=== PATIENT | female | born 1960 | race Caucasian/White ===

== ENCOUNTER 2016-12-28 15:30 | Emergency (ER) | payer MEDICAID ==
[2016-12-28] MEDS ORDERED: ONDANSETRON 4 MG/2 ML VIAL IVP STA (15:50)
[2016-12-28] MEDS ORDERED: MORPHINE SULFATE 4 MG/ML SYRINGE IV STA (15:50)
[2016-12-28] MEDS ORDERED: PANTOPRAZOLE 40 MG/10 ML VIAL IVP STA (15:50)
[2016-12-28] MEDS ORDERED: SODIUM CHLORIDE 0.9% 1,000 ML IV STA ×2 (15:50)
--- NOTE | 2016-12-28 16:23 | ED ---
General Adult HPI - General Chief complaint: Nausea/Vomiting/Diarrhea Stated complaint: Vomiting Time Seen by Provider: 12/28/16 15:40 Source: patient, RN notes reviewed, old records reviewed Mode of arrival: ambulatory Limitations: no limitations - History of Present Illness Initial comments: This is a 56-year-old female today presenting ER for evaluation of abdominal pain. Nausea vomiting. Severe right upper quadrant and epigastric dull pain with nausea and vomiting. Patient has no history of similar issues. She has had a history of a hysterectomy years ago. She have a bowel movement today. Again no fevers. No diarrhea. The patient started vomiting this morning has continued. Unable to tolerate oral intake. - Related Data Home Medications Medication Instructions Recorded Confirmed Hydrochlorothiazide [Hydrodiuril] 25 mg PO DAILY 12/28/16 12/28/16 Levothyroxine Sodium [Synthroid] 25 mcg PO DAILY 12/28/16 12/28/16 Levothyroxine Sodium [Synthroid] 200 mcg PO DAILY 12/28/16 12/28/16 Allergies Allergy/AdvReac Type Severity Reaction Status Date / Time No Known Allergies Allergy Verified 12/28/16 15:46 Review of Systems ROS Statement: Those systems with pertinent positive or pertinent negative responses have been documented in the HPI. ROS Other: All systems not noted in ROS Statement are negative. Past Medical History Past Medical History: Thyroid Disorder Additional Past Medical History / Comment(s): arthritis History of Any Multi-Drug Resistant Organisms: None Reported Past Surgical History: Section, Hysterectomy Additional Past Surgical History / Comment(s): thyroidectomy Past Psychological History: No Psychological Hx Reported Smoking Status: Former smoker Past Alcohol Use History: Rare Past Drug Use History: None Reported General Exam Limitations: no limitations General appearance: alert, in no apparent distress Head exam: Present: atraumatic, normocephalic, normal inspection Eye exam: Present: normal appearance, PERRL, EOMI. Absent: scleral icterus, conjunctival injection, periorbital swelling ENT exam: Present: normal exam, mucous membranes moist Neck exam: Present: normal inspection. Absent: tenderness, meningismus, lymphadenopathy Respiratory exam: Present: normal lung sounds bilaterally. Absent: respiratory distress, wheezes, rales, rhonchi, stridor Cardiovascular Exam: Present: regular rate, normal rhythm, normal heart sounds. Absent: systolic murmur, diastolic murmur, rubs, gallop, clicks GI/Abdominal exam: Present: soft, normal bowel sounds. Absent: distended, tenderness, guarding, rebound, rigid Extremities exam: Present: normal inspection, full ROM, normal capillary refill. Absent: tenderness, pedal edema, joint swelling, calf tenderness Back exam: Present: normal inspection Neurological exam: Present: alert, oriented X3, CN II-XII intact Psychiatric exam: Present: normal affect, normal mood Skin exam: Present: warm, dry, intact, normal color. Absent: rash Course Vital Signs 12/28/16 12/28/16 15:35 17:37 Temperature 98.3 F Pulse Rate 104 H 100 Respiratory 18 18 Rate Blood Pressure 136/88 142/72 O2 Sat by Pulse 98 98 Oximetry - Reevaluation(s) Reevaluation #1: 12/28/16 17:56 At this time patient symptoms are improved, symptomatically 12/28/16 17:56 Feeling better and able to tolerate oral intake EKG Findings - EKG Comments: EKG Findings:: EKG shows normal sinus rhythm rate of 66, VT 178, QRS 74, QTC 417 Medical Decision Making - Medical Decision Making 56 female here with nonspecific abdominal pain, ultrasound gallbladder CT of and pelvis is negative for acute disease. Patient's vomiting isn't controlled at this time, we'll discharge home with gastritis, discharged patient with antiemetics and okay for discharge - Lab Data Result diagrams: 12/28/16 16:18 12/28/16 16:18 Lab Results 12/28/16 12/28/16 12/28/16 Range/Units 16:18 16:18 16:18 WBC 10.8 H (3.8-10.6) k/uL RBC 5.38 (3.80-5.40) m/uL Hgb 16.0 (11.4-16.0) gm/dL Hct 47.0 H (34.0-46.0) % MCV 87.4 (80.0-100.0) fL MCH 29.7 (25.0-35.0) pg MCHC 34.0 (31.0-37.0) g/dL RDW 13.2 (11.5-15.5) % Plt Count 286 (150-450) k/uL Neutrophils % 89 % Lymphocytes % 7 % Monocytes % 2 % Eosinophils % 1 % Basophils % 0 % Neutrophils # 9.6 H (1.3-7.7) k/uL Lymphocytes # 0.8 L (1.0-4.8) k/uL Monocytes # 0.2 (0-1.0) k/uL Eosinophils # 0.2 (0-0.7) k/uL Basophils # 0.0 (0-0.2) k/uL Sodium 141 (137-145) mmol/L Potassium 4.2 (3.5-5.1) mmol/L Chloride 100 (98-107) mmol/L Carbon Dioxide 26 (22-30) mmol/L Anion Gap 15 mmol/L BUN 24 H (7-17) mg/dL Creatinine 0.68 (0.52-1.04) mg/dL Est GFR (MDRD) Af Amer >60 (>60 ml/min/1.73 sqM) Est GFR (MDRD) Non-Af >60 (>60 ml/min/1.73 sqM) Glucose 144 H (74-99) mg/dL Plasma Lactic Acid Magan (0.7-2.0) mmol/L Calcium 9.2 (8.4-10.2) mg/dL Total Bilirubin 1.1 (0.2-1.3) mg/dL AST 31 (14-36) U/L ALT 34 (9-52) U/L Alkaline Phosphatase 94 (38-126) U/L Total Protein 8.3 H (6.3-8.2) g/dL Albumin 4.6 (3.5-5.0) g/dL Amylase 46 (30-110) U/L Lipase 49 (23-300) U/L Urine Color Yellow Urine Appearance Clear (Clear) Urine pH 5.5 (5.0-8.0) Ur Specific Voss 1.021 (1.001-1.035) Urine Protein 1+ H (Negative) Urine Glucose (UA) Negative (Negative) Urine Ketones Negative (Negative) Urine Blood Negative (Negative) Urine Nitrite Negative (Negative) Urine Bilirubin Negative (Negative) Urine Urobilinogen <2.0 (<2.0) mg/dL Ur Leukocyte Esterase Trace H (Negative) Urine RBC 1 (0-5) /hpf Urine WBC 2 (0-5) /hpf Ur Squamous Epith Cells 5 H (0-4) /hpf Amorphous Sediment Rare H (None) /hpf Urine Bacteria Rare H (None) /hpf Urine Mucus Rare H (None) /hpf 12/28/16 Range/Units 16:20 WBC (3.8-10.6) k/uL RBC (3.80-5.40) m/uL Hgb (11.4-16.0) gm/dL Hct (34.0-46.0) % MCV (80.0-100.0) fL MCH (25.0-35.0) pg MCHC (31.0-37.0) g/dL RDW (11.5-15.5) % Plt Count (150-450) k/uL Neutrophils % % Lymphocytes % % Monocytes % % Eosinophils % % Basophils % % Neutrophils # (1.3-7.7) k/uL Lymphocytes # (1.0-4.8) k/uL Monocytes # (0-1.0) k/uL Eosinophils # (0-0.7) k/uL Basophils # (0-0.2) k/uL Sodium (137-145) mmol/L Potassium (3.5-5.1) mmol/L Chloride (98-107) mmol/L Carbon Dioxide (22-30) mmol/L Anion Gap mmol/L BUN (7-17) mg/dL Creatinine (0.52-1.04) mg/dL Est GFR (MDRD) Af Amer (>60 ml/min/1.73 sqM) Est GFR (MDRD) Non-Af (>60 ml/min/1.73 sqM) Glucose (74-99) mg/dL Plasma Lactic Acid Magan 1.7 (0.7-2.0) mmol/L Calcium (8.4-10.2) mg/dL Total Bilirubin (0.2-1.3) mg/dL AST (14-36) U/L ALT (9-52) U/L Alkaline Phosphatase (38-126) U/L Total Protein (6.3-8.2) g/dL Albumin (3.5-5.0) g/dL Amylase (30-110) U/L Lipase (23-300) U/L Urine Color Urine Appearance (Clear) Urine pH (5.0-8.0) Ur Specific Voss (1.001-1.035) Urine Protein (Negative) Urine Glucose (UA) (Negative) Urine Ketones (Negative) Urine Blood (Negative) Urine Nitrite (Negative) Urine Bilirubin (Negative) Urine Urobilinogen (<2.0) mg/dL Ur Leukocyte Esterase (Negative) Urine RBC (0-5) /hpf Urine WBC (0-5) /hpf Ur Squamous Epith Cells (0-4) /hpf Amorphous Sediment (None) /hpf Urine Bacteria (None) /hpf Urine Mucus (None) /hpf - Radiology Data Radiology results: report reviewed (CT had a pelvis ultrasound gallbladder is negative for acute disease), image reviewed Disposition Clinical Impression: Dehydration, Gastroenteritis, Abdominal pain Disposition: HOME SELF-CARE Condition: Good Instructions: Acute Nausea and Vomiting (ED) Referrals: Lyndsey Treviño MD [Primary Care Provider] - 1-2 days
[2016-12-28 16:34] LABS: Basophils % (A) 0 %; CH 30.4; CHCM 34.9; Eosinophils # (A) 0.2 k/uL (0-0.7); Eosinophils % (A) 1 %; Luc # (Auto) 0.09; Luc % (Auto) 1; Lymphocytes # (A) 0.8 k/uL (1.0-4.8); Lymphocytes % (A) 7 %; MCH 29.7 pg (25.0-35.0); MCV 87.4 fL (80.0-100.0); Mean Platelet Volume 7.5; Monocytes # (A) 0.2 k/uL (0-1.0); Monocytes % (A) 2 %; Neutrophils # (A) 9.6 k/uL (1.3-7.7); Neutrophils % (A) 89 %; RBC 5.38 m/uL (3.80-5.40); RDW 13.2 % (11.5-15.5); WBC 10.8 k/uL (3.8-10.6); WBC (Perox) 10.98
[2016-12-28 16:43] LABS: Amorphous Sediment,Urine Rare /hpf; Appearance,Urine Clear (Clear); Bacteria,Urine Rare /hpf; Bilirubin,Urine Negative (Negative); Glucose,Urine (UA) Negative (Negative); Ketones,Urine Negative (Negative); Leukocyte Esterase,Urine Trace (Negative); Mucus,Urine Rare /hpf; Nitrite,Urine Negative (Negative); PH, Urine 5.5 (5.0-8.0); Particle Count 5787; Protein,Urine 1+ (Negative); RBC,Urine 1 /hpf (0-5); Specific Gravity,Urine 1.021 (1.001-1.035); Squamous Epithelial Cell,Urine 5 /hpf (0-4); UA Billing (MACRO vs. MICRO) MICRO; Urobilinogen,Urine <2.0 mg/dL (<2.0); WBC,Urine 2 /hpf (0-5)
[2016-12-28 16:45] LABS: ALT 34 U/L (9-52); AST 31 U/L (14-36); Alkaline Phosphatase 94 U/L (38-126); Amylase 46 U/L (30-110); Anion Gap 15 mmol/L; Blood Urea Nitrogen 24 mg/dL (7-17); Calcium 9.2 mg/dL (8.4-10.2); Carbon Dioxide 26 mmol/L (22-30); Chloride 100 mmol/L (98-107); Glucose 144 mg/dL (74-99); Non-African American GFR(MDRD) >60 (>60 ml/min/1.73 sqM); Potassium 4.2 mmol/L (3.5-5.1); Sodium 141 mmol/L (137-145); Total Bilirubin 1.1 mg/dL (0.2-1.3); Total Protein 8.3 g/dL (6.3-8.2)
--- NOTE | 2016-12-28 16:55 | US ---
EXAMINATION TYPE: US gallbladder DATE OF EXAM: 12/28/2016 4:43 PM COMPARISON: CT in PACS CLINICAL HISTORY: Pain. Nausea, Vomiting Bile, ABD pain EXAM MEASUREMENTS: Liver Length: 21.5 cm Gallbladder Wall: 0.2 cm CBD: 0.4 cm Right Kidney: 10.1 x 4.0 x 4.3 cm TECHNOLOGIST IMPRESSION: Pancreas: wnl, tail obscured by overlying bowel gas Liver: Enlarged, heterogeneous Gallbladder: wnl Evidence for sonographic Khalil's sign: No CBD: wnl Right Kidney: wnl There is fatty infiltration of the liver. The gallbladder wall measures 2 mm. IMPRESSION: Hepatomegaly and fatty infiltration of the liver.
[2016-12-28] MEDS ORDERED: RX INFO: IV CONTRAST WAS GIVEN 1 EACH MISC MISCELLANE PRN (17:06)
--- NOTE | 2016-12-28 17:44 | CT ---
EXAMINATION TYPE: CT abdomen pelvis w con DATE OF EXAM: 12/28/2016 5:36 PM COMPARISON: 08/27/2013 HISTORY: Patient complains of nausea, vomit ting, and RUQ to epigastric pain. CT DLP: 1596 mGycm Automated exposure control for dose reduction was used. TECHNIQUE: Helical acquisition of images was performed from the lung bases through the pelvis. CONTRAST: Performed without Oral Contrast and with IV Contrast, patient injected with 100 mL of Omnipaque 300. FINDINGS: Lung bases are clear. There is no pleural effusion. Heart size is normal. Liver shows no focal defect. Spleen and pancreas appear normal. The gallbladder appears normal. There is no adrenal mass. Kidneys show satisfactory contrast opacification. There is no hydronephrosi s. Appendix appears normal. There is no ascites. I see no intestinal wall thickening. There are no di lated loops. There are numerous sigmoid diverticula. Bladder distends smoothly. There is no sign of a pelvic mass. I see no bony destructive process. There is slight 5% depression of the superior endpla te of T11 vertebra. This is probably old injury. IMPRESSION: SEVERE SIGMOID DIVERTICULOSIS WITHOUT EVIDENCE OF DIVERTICULITIS. NO SIGN OF ACUTE ABDOMEN AND PELVIS . NO ADVERSE CHANGE COMPARED TO OLD EXAM.
[2016-12-28 18:06] VITALS: BP 117/56; PULSE 88; RESP 16; TEMP 98.4
== END 2016-12-28 18:06 | disposition home or self-care (01) ==
LOC: EC 15:30
DX: E86.0 Dehydration (principal); K52.9 Noninfective gastroenteritis and colitis, unspecified; E07.9 Disorder of thyroid, unspecified; Z87.891 Personal history of nicotine dependence; Z79.899 Other long term (current) drug therapy
CPT/HCPCS: 99284; 96374; 96375 ×2; 96361 ×2; 36415; 80053; 82150; 83605; 83690; 85025; 81001; 87086; 76705; 74177; J2270; J2405; Q9967; C9113

== ENCOUNTER → 2017-07-22 | Outpatient (CLI) | payer MEDICAID ==
--- NOTE | 2017-07-22 14:28 | BD ---
EXAMINATION TYPE: MG DEXA axial skeleton. DATE OF EXAM: 07/22/2017 COMPARISON: NONE CLINICAL HISTORY: Postmenopausal screening. Height: 63 Weight: 193.1 FRAX RISK QUESTIONS: Alcohol (3 or more units per day): no Family History (Parent hip fracture): no Glucocorticoids (More than 3mos): no (Ex: prednisone, prednisolone, methylprednisolone, dexamethasone, and hydrocortisone). History of Fracture in Adulthood: no Secondary Osteoporosis: 1. Type 1 Diabetes: no 2. Hyperthyroidism: no 3. Menopause before 45: yes 4. Malnutrition: no 5. Chronic liver disease: no Rheumatoid Arthritis: no Current Tobacco Use: no RISK FACTORS HISTORY OF: Hip Fracture (Right/Left): no Spine Fracture: no History of Wrist Fracture: no Surgery to Spine/Hip(right/left)/Wrist (right/left): no Family History of Osteoporosis: no Active: yes Diet low in dairy products/other sources of calcium: no Postmenopausal woman: March 1988 Lost more than 2 inches in height since high school: no Frequent falls: no Adrenal Insufficiency: no MEDICATIONS: blood pressure med Thyroid Medications: synthroid How Lon years Additional History: EXAM MEASUREMENTS: Bone mineral densitometry was performed using the [employer] System. Bone mineral density as measured about the Lumbar spine is: ----- L1-L4(G/cm2): 1.254 T Score Values are as follows: ----- L2: 0.0 ----- L3: 0.7 ----- L4: 0.9 ----- L1-L4: 0.6 Bone mineral density has: decreased -5.0 % since study of: 07.09.2010 Bone mineral density about the R hip (g/cm2): 0.975 Bone mineral density about the L hip (g/cm2): 0.921 T Score values are as follows: -----R Neck: -0.5 -----L Neck: -0.8 -----R Total: 0.6 -----L Total: 0.7 Bone mineral density has: decreased -0.2 % since study of: 07.09.2010 IMPRESSION: Normal (Values between +1 and -1 indicate normal bone mass). Consider repeating this study in 5 year s or sooner if there is some new clinical indication. NOTE: T-SCORE=SD OF THE YOUNG ADULT MEAN.
--- NOTE | 2017-07-25 10:34 | MM ---
Reason for exam: screening (asymptomatic). Last mammogram was performed 1 year and 1 month ago. History: Family history of breast cancer in sister at age 62 and breast cancer in mother at age 82. Physical Findings: A clinical breast exam by your physician is recommended on an annual basis and results should be correlated with mammographic findings. MG 3D Screening Mammo W/Cad Bilateral CC and MLO view(s) were taken. Prior study comparison: June 30, 2016, bilateral MG 3d screening mammo w/cad. April 10, 2015, bilateral MG screening mammo w CAD. The breast tissue is heterogeneously dense. This may lower the sensitivity of mammography. No suspicious abnormality. No significant changes when compared with prior studies. ASSESSMENT: Negative, BI-RAD 1 RECOMMENDATION: Routine screening mammogram of both breasts in 1 year.
== END | disposition home or self-care (01) ==
LOC: RADMAMWWP 06:46
PROVIDERS: ATTEND Family Medicine
DX: Z12.31 Encounter for screening mammogram for malignant neoplasm of breast (principal); Z78.0 Asymptomatic menopausal state
CPT/HCPCS: 77080; 77063; G0202

== ENCOUNTER → 2018-08-08 | Outpatient (CLI) | payer MEDICAID ==
--- NOTE | 2018-08-10 11:22 | MM ---
Reason for exam: screening (asymptomatic). Last mammogram was performed 1 year and 1 month ago. History: Family history of breast cancer in sister at age 62 and breast cancer in mother at age 82. MG 3D Screening Mammo W/Cad Bilateral CC and MLO view(s) were taken. Prior study comparison: July 22, 2017, bilateral MG 3d screening mammo w/cad. June 30, 2016, bilateral MG 3d screening mammo w/cad. There are scattered fibroglandular densities. No significant changes when compared with prior studies. ASSESSMENT: Negative, BI-RAD 1 RECOMMENDATION: Routine screening mammogram of both breasts in 1 year.
== END | disposition home or self-care (01) ==
LOC: RADMAMWWP 11:59
PROVIDERS: ATTEND Family Medicine
DX: Z12.31 Encounter for screening mammogram for malignant neoplasm of breast (principal)
CPT/HCPCS: 77063; 77067

== ENCOUNTER → 2019-11-12 | Outpatient (CLI) | payer BC ==
--- NOTE | 2019-11-14 10:50 | MM ---
Reason for exam: screening (asymptomatic). Last mammogram was performed 1 year and 3 months ago. History: Family history of breast cancer in sister at age 62 and breast cancer in mother at age 82. Physical Findings: A clinical breast exam by your physician is recommended on an annual basis and results should be correlated with mammographic findings. MG Screening Mammo w CAD Bilateral CC and MLO view(s) were taken. Prior study comparison: August 08, 2018, bilateral MG 3d screening mammo w/cad. July 22, 2017, bilateral MG 3d screening mammo w/cad. The breast tissue is heterogeneously dense. This may lower the sensitivity of mammography. No significant changes when compared with prior studies. ASSESSMENT: Negative, BI-RAD 1 RECOMMENDATION: Routine screening mammogram of both breasts in 1 year.
== END | disposition home or self-care (01) ==
LOC: RADMAMWWP 12:37
PROVIDERS: ATTEND Family Medicine
DX: Z12.31 Encounter for screening mammogram for malignant neoplasm of breast (principal)
CPT/HCPCS: 77067

== ENCOUNTER → 2021-02-12 | Outpatient (CLI) | payer BC ==
--- NOTE | 2021-02-16 09:39 | MM ---
Reason for exam: screening (asymptomatic). Last mammogram was performed 1 year and 3 months ago. History: Patient is postmenopausal. Family history of breast cancer in sister at age 62 and breast cancer in mother at age 82. Physical Findings: A clinical breast exam by your physician is recommended on an annual basis and results should be correlated with mammographic findings. MG 3D Screening Mammo W/Cad Bilateral CC and MLO view(s) were taken. Prior study comparison: November 12, 2019, bilateral MG screening mammo w CAD. August 08, 2018, bilateral MG 3d screening mammo w/cad. The breast tissue is heterogeneously dense. This may lower the sensitivity of mammography. No significant changes when compared with prior studies. ASSESSMENT: Benign, BI-RAD 2 RECOMMENDATION: Routine screening mammogram of both breasts in 1 year.
== END | disposition home or self-care (01) ==
LOC: RADMAMWWP 13:01
PROVIDERS: ATTEND Family Medicine
DX: Z12.31 Encounter for screening mammogram for malignant neoplasm of breast (principal); Z80.3 Family history of malignant neoplasm of breast; Z78.0 Asymptomatic menopausal state
CPT/HCPCS: 77063; 77067

== ENCOUNTER → 2021-02-25 | Outpatient (CLI) | payer BC ==
[~2021-02-25] MED LIST: REGADENOSON 0.4 MG/5 ML SYRINGE IV PRN
--- NOTE | 2021-02-25 12:28 | NM ---
EXAMINATION TYPE: NM stress lexiscan cardiolite DATE OF EXAM: 02/25/2021 COMPARISON: NONE HISTORY: 60-year-old female R06.02, shortness of breath and dizziness. TECHNIQUE: After the intravenous administration of 9.4 mCi Tc 99m Sestamibi - Cardiolite resting SPE CT images acquired 45 minutes post injection. The patient received 0.4mg Lexiscan, 23.3 mCi Tc 99m Sestamibi - Stress images obtained [address] injection FINDINGS: Review of stress and rest SPECT images demonstrates no distinct perfusion abnormality. Gated analysi s shows normal wall motion with an estimated left ventricular ejection fraction of 62 %. Polar maps s uggest some reversibility along the basal anterolateral wall. Suspect this to be artifactual given pr ominent GI activity accentuating the inferior wall. TID is calculated at 0.84, within normal limits. IMPRESSION: Polar maps suggest a small area of reversibility along the basal inferolateral wall. Suspect this to be artifactual. Further clinical correlation recommended. Otherwise, no other suspicious reversibilit y is seen. Estimated LVEF of 62%.
--- NOTE | 2021-02-25 12:39 | EST ---
EXERCISE STRESS AGE: 60 SEX: Female HT: 5'3" WT: 185 lbs. PROTOCOL: Lexiscan Cardiolite STAGE: N/A DURATION OF EXERCISE: N/A HEART RATE REST: 64 BLOOD PRESSURE REST: 127/66 MAXIMUM HEART RATE ACHIEVED: 92 MAXIMUM BLOOD PRESSURE: 142/64 85% MPHR: 136 100% MPHR: 160 METS: N/A INDICATIONS: Vertigo CLINICAL INFORMATION: Baseline EKG revealed normal sinus rhythm without significant ST-T changes. With Lexiscan administration, the heart rate changed from 64 to 92 beats per minute. Blood pressure changed from 127/66 to 142/64. Patient did not have significant symptoms. EKG was unremarkable. By EKG criteria, this is unremarkable Lexiscan stress test. The nuclear scan results which are more pertinent will be reported by the radiologist. MMODL / IJN: [id number] /
== END | disposition home or self-care (01) ==
LOC: RADNMMAIN 07:49
PROVIDERS: ATTEND Family Medicine
DX: R06.02 Shortness of breath (principal); R42 Dizziness and giddiness
CPT/HCPCS: 93017; 78452; A9500; J2785

== ENCOUNTER → 2022-06-18 | Outpatient (CLI) | payer BC ==
--- NOTE | 2022-06-20 08:06 | BD ---
EXAMINATION TYPE: Axial Bone Density DATE OF EXAM: 06/18/2022 COMPARISON: 2017 bone scan report CLINICAL HISTORY: 62 years year old Female. ICD-10 CODE: Z78.0 Asymptomatic menopausal state Height: 5 FT 2 IN Weight: 182 FRAX RISK QUESTIONS: Alcohol (3 or more units per day): NO Family History (Parent hip fracture): NO Glucocorticoids (More than 3mos): NO (Ex: prednisone, prednisolone, methylprednisolone, dexamethasone, and hydrocortisone). History of Fracture in Adulthood: NO Secondary Osteoporosis: 1. Type 1 Diabetes: NO 2. Hyperthyroidism: REMOVED 3. Menopause before 45: YES 4. Malnutrition: NO 5. Chronic liver disease: NO Rheumatoid Arthritis: NO Current Tobacco Use: NO RISK FACTORS HISTORY OF: When: Surgery to Spine/Hip(right/left)/Wrist (right/left): NO Family History of Osteoporosis: NO Active: NO Diet low in dairy products/other sources of calcium: NO Postmenopausal woman: YES Take estrogen and/or progesterone medications: NO Lost more than 2 inches in height since high school: NO Frequent falls: NO Poor Health: GOOD Hyperparathyroidism: NO Adrenal Insufficiency: NO MEDICATIONS: Thyroid Medications: YES Which medication: LEVOTHYROXINE How Lon YEARS Additional Medications: METFORMIN, BLOOD PRESSURE MEDS,LEVOTHYROXINE Additional History: EXAM MEASUREMENTS: Bone mineral densitometry was performed using the [employer] System. Bone mineral density as measured about the Lumbar spine is: ----- L1-L4(G/cm2): 1.271 T Score Values are as follows: ----- L1: 0.8 ----- L2: 0.5 ----- L3: 0.6 ----- L4: 1.0 ----- L1-L4: 0.8 Bone mineral density has: INCREASED 1.3 % since study of: 2017 Bone mineral density about the R hip (g/cm2): 1.017 Bone mineral density about the L hip (g/cm2): 0.959 T Score values are as follows: -----R Neck: -0.1 -----L Neck: -0.6 -----R Total: 0.5 -----L Total: 0.7 Bone mineral density has: DECREASED -0.2 % since study of: 2017 FRAX%s: The graph provided illustrates a 6.6 % chance for a major osteoporotic fx and a 0.3 % chance for the hips probability for fx in 10 years time. IMPRESSION: Normal (Values between +1 and -1 indicate normal bone mass). Consider repeating this study in 5 year s or sooner if there is some new clinical indication. NOTE: T-SCORE=SD OF THE YOUNG ADULT MEAN.
--- NOTE | 2022-06-25 18:13 | MM ---
Reason for Exam: Screening (asymptomatic). Last mammogram was performed 1 year(s) and 4 month(s) ago. Patient History: Menarche at age 12. First Full-Term at age 18. Right ovary removed at age 28. Hysterectomy at age 28. Postmenopausal. Sister had breast cancer, age 62. Mother had breast cancer, age 82. Risk Values: Rhea 5 year model risk: 7.2%. NCI Lifetime model risk: 28.9%. Prior Study Comparison: 08/08/2018 Bilateral Screening Mammogram, [facility]. 11/12/2019 Bilateral Screening Mammogram, [facility]. 02/12/2021 Bilateral Screening Mammogram, [facility]. Tissue Density: There are scattered fibroglandular densities. Findings: Analyzed By CAD. There is no suspicious group of microcalcifications or new suspicious mass in either breast. Overall Assessment: Negative, BI-RAD 1 Management: Screening Mammogram of both breasts in 1 year. A clinical breast exam by your physician is recommended on an annual basis and results should be correlated with mammographic findings. Electronically signed and approved by: Frederick Reeves DO
== END | disposition home or self-care (01) ==
LOC: RADMAMWWP 15:54
PROVIDERS: ATTEND Family Medicine
DX: Z12.31 Encounter for screening mammogram for malignant neoplasm of breast (principal); Z78.0 Asymptomatic menopausal state; Z80.3 Family history of malignant neoplasm of breast
CPT/HCPCS: 77063; 77067; 77080

== ENCOUNTER → 2023-02-16 | Outpatient (CLI) | payer BC ==
[2023-02-16 13:45] LABS: African American GFR (CKD) >90 (>60 ml/min/1.73 sqM); Blood Urea Nitrogen 17 mg/dL (7-17); Non-African American GFR(CKD) >90 (>60 ml/min/1.73 sqM)
--- NOTE | 2023-02-17 09:37 | CT ---
EXAMINATION TYPE: CT abdomen pelvis w con DATE OF EXAM: 02/16/2023 COMPARISON: 12/28/2016 HISTORY: 62-year-old female K57.20, possible fistula. Stool seeping from Vaginal cavity. With rectal contrast TECHNIQUE: Contiguous axial scanning of the abdomen and pelvis following administration of 100 ml Iso nalini 300 IV contrast. Delayed images through the kidneys and coronal/sagittal reconstructions perform ed. Rectal contrast was administered. CT DLP: 1705 mGycm Automated exposure control for dose reduction was used. FINDINGS: Heart normal size without pericardial effusion. Lung bases clear without pleural effusion. No focal liver lesion or biliary ductal dilatation. Portal venous system is patent. Gallbladder, adre nal glands, left kidney, spleen, and pancreas within normal limits. Extrarenal pelvis redemonstrated right kidney. No dilated small bowel, free fluid, free air. No mesenteric or retroperitoneal lymphadenopathy. Normal appendix. Moderate stool burden. Sigmoid diverticulosis. Moderate fold thickening mid to dista l sigmoid colon with adjacent inflammatory edema and fat stranding. Suspect two subtle fistulous communications extending from the inferior margin of the inflamed colon to the level of the vaginal cuff, refer to coronal images 59 through 62 and sagittal images 44 and 45 . Small amount of air is noted high in the vagina with some dependent debris. Just adjacent, interposed between the anterior aspect of the vaginal cuff and the posterior dome of t he bladder, there is a platelike fluid collection measuring 3.8 cm AP by 4.7 cm wide by 6 cm thick. Mild circumferential bladder wall thickening. Neither ovary well seen. Otherwise, no abnormal fluid c ollection in the pelvis. Bones: Degenerative disc disease L5-S1. IMPRESSION: 1. FINDINGS OF SUBACUTE DIVERTICULITIS OF THE SIGMOID COLON. MODERATE ASSOCIATED INFLAMMATION. 2. COMPLICATION WITH FISTULA FORMATION FROM THE INFERIOR MARGIN OF THE INFLAMED SIGMOID COLON TO THE VAGINAL CUFF. 2 TINY FISTULA TRACTS MAY BE PRESENT (CORONAL IMAGES 59 THROUGH 62 AND SAGITTAL IMAGES 44 AND 45). 3. IN ADDITION, JUST ADJACENT, INTERPOSED BETWEEN THE ANTERIOR ASPECT OF THE VAGINAL CUFF AND THE POS TERIOR DOME OF THE BLADDER, THERE IS A PLATELIKE FLUID COLLECTION MEASURING 3.8 X 4.7 X 0.6 CM. POSSI BLE PLATELIKE ABSCESS ALONG THE SEROSA OF THE BLADDER. 4. MILD CIRCUMFERENTIAL BLADDER WALL THICKENING MAY BE REACTIVE OR COULD REFLECT CYSTITIS. CLINICALLY CORRELATE.
== END | disposition home or self-care (01) ==
LOC: RADCTMAIN 13:06
PROVIDERS: ATTEND Surgery
DX: K57.20 Diverticulitis of large intestine with perforation and abscess without bleeding (principal); K63.2 Fistula of intestine; N32.89 Other specified disorders of bladder
CPT/HCPCS: 82565; 84520; 74177; 36415; Q9967

== ENCOUNTER 2023-05-10 18:33 | Observation (INO) | payer BC ==
[2023-05-10] MEDS ORDERED: SODIUM CHLORIDE 0.9% 1,000 ML IV STA ×2 (20:10→21:40)
[2023-05-10] MEDS ORDERED: ONDANSETRON 4 MG/2 ML VIAL IVP STA (20:26)
[2023-05-10] MEDS ORDERED: PANTOPRAZOLE 40 MG/10 ML VIAL IVP STA (20:26)
[2023-05-10] MEDS ORDERED: FAMOTIDINE 20 MG/2 ML VIAL IV STA (20:27)
[2023-05-10 20:34] LABS: Basophils % (A) 0 %; Eosinophils # (A) 0.2 k/uL (0-0.7); Eosinophils % (A) 1 %; HCT 44.1 % (34.0-46.0); HGB 15.3 gm/dL (11.4-16.0); Lymphocytes # (A) 2.4 k/uL (1.0-4.8); Lymphocytes % (A) 19 %; MCH 30.3 pg (25.0-35.0); MCHC 34.8 g/dL (31.0-37.0); MCV 87.1 fL (80.0-100.0); Mean Platelet Volume 8.9; Monocytes # (A) 0.7 k/uL (0-1.0); Monocytes % (A) 5 %; Neutrophils # (A) 9.5 k/uL (1.3-7.7); Neutrophils % (A) 74 %; Platelet Count 268 k/uL (150-450); RBC 5.06 m/uL (3.80-5.40); RDW 13.6 % (11.5-15.5); WBC 12.9 k/uL (3.8-10.6)
[2023-05-10 20:45] LABS: ALT 21 U/L (4-34); AST 27 U/L (14-36); African American GFR (CKD) 51 (>60 ml/min/1.73 sqM); Albumin 4.6 g/dL (3.5-5.0); Alkaline Phosphatase 108 U/L (38-126); Anion Gap 15 mmol/L; Blood Urea Nitrogen 28 mg/dL (7-17); Carbon Dioxide 21 mmol/L (22-30); Chloride 98 mmol/L (98-107); Glucose 79 mg/dL (74-99); Lipase 435 U/L (23-300); Magnesium 1.6 mg/dL (1.6-2.3); Non-African American GFR(CKD) 44 (>60 ml/min/1.73 sqM); Sodium 134 mmol/L (137-145); Total Bilirubin 0.6 mg/dL (0.2-1.3); Total Protein 8.4 g/dL (6.3-8.2)
--- NOTE | 2023-05-10 21:50 | XR ---
EXAMINATION TYPE: XR chest 2V DATE OF EXAM: 05/10/2023 9:29 PM COMPARISON: 03/13/2014 TECHNIQUE: XR chest 2V Frontal and lateral views of the chest. CLINICAL INDICATION:Female, 63 years old with history of weakness; FINDINGS: Lungs/Pleura: There is no evidence of pleural effusion, focal consolidation, or pneumothorax. Pulmonary vascularity: Unremarkable. Heart/mediastinum: Cardiomediastinal silhouette is unremarkable. Musculoskeletal: No acute osseous pathology. IMPRESSION: No acute cardiopulmonary disease/process.
[2023-05-10 21:54] LABS: INR 0.9 (<1.2); Partial Thromboplastin Time 24.2 sec (22.0-30.0); Prothrombin Time 10.1 sec (9.0-12.0)
--- NOTE | 2023-05-10 22:00 | ED ---
General Adult HPI - General Chief complaint: Weakness Stated complaint: Dehydration Time Seen by Provider: 05/10/23 20:09 Source: patient Mode of arrival: wheelchair Limitations: no limitations - History of Present Illness Initial comments: Patient is a 63-year-old female who presents to the emergency department for dehydration. Patient had an ostomy placed about a month ago states since the procedure she has had poor appetite. Patient admits a little water intake. She feels weak and dehydrated. She has had very little output from her ostomy toda y. She denies fever, chills, abdominal pain. She does have nausea no vomiting. No blood in the stool. Patient also reports intermittent chest pain today. The chest pain is intermittent lasting 3-4 minutes. It is sharp in nature, no radiation. It improved with samm anthony. No exacerbating factors. She has history of diabetes. No history of OR or CAD. No numbness or tingling. No shortness of breath. - Related Data Home Medications Medication Instructions Recorded Confirmed Levothyroxine Sodium [Synthroid] 200 mcg PO DAILY 12/28/16 05/10/23 hydroCHLOROthiazide [Hydrodiuril] 25 mg PO DAILY 12/28/16 05/10/23 Aspirin EC [Ecotrin Low Dose] 81 mg PO DAILY 05/10/23 05/10/23 Atorvastatin [Lipitor] 20 mg PO HS 05/10/23 05/10/23 Citalopram Hydrobromide [CeleXA] 10 mg PO DAILY 05/10/23 05/10/23 Glimepiride [Amaryl] 1 mg PO DAILY 05/10/23 05/10/23 Multivit-Min/Iron/Folic/Lutein 1 tab PO DAILY 05/10/23 05/10/23 [Centrum Silver Women Tablet] Mv-Mn/C/Glutamin/Lysin/Wqsl244 1 tablet PO BID 05/10/23 05/10/23 [Airborne Gummies] metFORMIN HCL [Glucophage] 1,000 mg PO BID 05/10/23 05/10/23 Allergies Allergy/AdvReac Type Severity Reaction Status Date / Time No Known Allergies Allergy Verified 05/10/23 22:19 Review of Systems ROS Statement: Those systems with pertinent positive or pertinent negative responses have been documented in the HPI. ROS Other: All systems not noted in ROS Statement are negative. Past Medical History Past Medical History: Thyroid Disorder Additional Past Medical History / Comment(s): arthritis, bowel fistula History of Any Multi-Drug Resistant Organisms: None Reported Past Surgical History: Section, Hysterectomy Additional Past Surgical History / Comment(s): thyroidectomy, illeostomy. Past Psychological History: No Psychological Hx Reported Smoking Status: Former smoker Past Alcohol Use History: Rare Past Drug Use History: None Reported General Exam Limitations: no limitations General appearance: alert Eye exam: Present: normal appearance, PERRL, EOMI. Absent: scleral icterus, conjunctival injection, periorbital swelling ENT exam: Present: mucous membranes dry Respiratory exam: Present: normal lung sounds bilaterally. Absent: respiratory distress, wheezes, rales, rhonchi, stridor Cardiovascular Exam: Present: regular rate, normal rhythm, normal heart sounds. Absent: systolic murmur, diastolic murmur, rubs, gallop, clicks GI/Abdominal exam: Present: soft, normal bowel sounds. Absent: distended, tenderness, guarding, rebound, rigid Neurological exam: Present: alert Psychiatric exam: Present: normal affect, normal mood Skin exam: Present: warm, dry, intact, normal color. Absent: rash Course Vital Signs 05/10/23 05/10/23 05/10/23 19:40 20:57 22:48 Temperature 98.3 F Pulse Rate 123 H 101 H 80 Respiratory 18 18 20 Rate Blood Pressure 91/64 98/78 110/16 O2 Sat by Pulse 97 95 98 Oximetry Medical Decision Making - Medical Decision Making Was pt. sent in by a medical professional or institution (, PA, [employer], urgent care, hospital, or usp...) When possible be specific @ -No Did you speak to anyone other than the patient for history (EMS, parent, family, police, friend...)? What history was obtained from this source @ -No Did you review nursing and triage notes (agree or disagree)? Why? @ -I reviewed and agree with nursing and triage notes Were old charts reviewed (outside hosp., previous admission, EMS record, old EKG, old radiological studies, urgent care reports/EKG's, usp records)? Report findings @ -No old charts were reviewed Differential Diagnosis (chest pain, altered mental status, abdominal pain women, abdominal pain men, vaginal bleeding, weakness, fever, dyspnea, syncope, headache, dizziness, GI bleed, back pain, seizure, CVA, palpatations, mental health)? @ -Dehydration, acute kidney injury, pancreatitis. This list is not meant to be all-inclusive EKG interpreted by me (3pts min.). @ -As above X-rays interpreted by me (1pt min.). @ -None done CT interpreted by me (1pt min.). @ -None done U/S interpreted by me (1pt. min.). @ -None done What testing was considered but not performed or refused? (CT, X-rays, U/S, labs)? Why? @ -None What meds were considered but not given or refused? Why? @ -None Did you discuss the management of the patient with other professionals (professionals i.e. , PA, [employer], lab, RT, psych nurse, social media assistant, belt worker, teacher, global chief creative officer, case management associate)? Give summary @ -No Was smoking cessation discussed for >3mins.? @ -No Was critical care preformed (if so, how long)? @ -No Were there social determinants of health that impacted care today? How? (Homelessness, low income, unemployed, alcoholism, drug addiction, transportation, low edu. Level, literacy, decrease access to med. care, residential, rehab)? @ -No Was there de-escalation of care discussed even if they declined (Discuss DNR or withdrawal of care, Hospice)? DNR status @ -No What co-morbidities impacted this encounter? (DM, HTN, Smoking, COPD, CAD, Cancer, CVA, ARF, Chemo, Hep., AIDS, mental health diagnosis, sleep apnea, morbid obesity)? @ -None Was patient admitted / discharged? Hospital course, mention meds given and route, prescriptions, significant lab abnormalities, going to OR and other pertinent info. @ -Patient presenting for dehydration. She appears dry. She is tachycardic at 123 and blood pressures on the softer side at 91/64. Labs obtained. There is acute kidney injury, creatinine at 1.30, double from baseline, BUN 28. Lactic is bumped at 2.5. There is mild elevation of lipase at 435. EKG shows no evidence of acute ischemia. Troponin within normal limits. Chest pain is atypical. Patient hydrated. She will be admitted for acute kidney injury I suspect secondary to dehydration, acute pancreatitis. Salena from [facility] accpets admission. Undiagnosed new problem with uncertain prognosis? @ -No Drug Therapy requiring intensive monitoring for toxicity (Heparin, Nitro, Insulin, Cardizem)? @ -[No] Were any procedures done? @ -[No] Diagnosis/symptom? @ -Dehydration, YOUSUF, acute pancreatitis Acute, or Chronic, or Acute on Chronic? @ -acute Uncomplicated (without systemic symptoms) or Complicated (systemic symptoms)? @ -Uncomplicated Side effects of treatment? @ -[No] Exacerbation, Progression, or Severe Exacerbation? @ -[No] Poses a threat to life or bodily function? How? (Chest pain, USA, OR, pneumonia, PE, COPD, DKA, ARF, appy, cholecystitis, CVA, Diverticulitis, Homicidal, Suicidal, threat to staff... and all critical care pts) @ -[No] Dr. fitzgerald is my attending - Lab Data Result diagrams: 05/10/23 20:05 05/10/23 20:05 Lab Results 05/10/23 05/10/23 05/10/23 Range/Units 20:05 20:05 20:05 WBC 12.9 H (3.8-10.6) k/uL RBC 5.06 (3.80-5.40) m/uL Hgb 15.3 (11.4-16.0) gm/dL Hct 44.1 (34.0-46.0) % MCV 87.1 (80.0-100.0) fL MCH 30.3 (25.0-35.0) pg MCHC 34.8 (31.0-37.0) g/dL RDW 13.6 (11.5-15.5) % Plt Count 268 (150-450) k/uL MPV 8.9 Neutrophils % 74 % Lymphocytes % 19 % Monocytes % 5 % Eosinophils % 1 % Basophils % 0 % Neutrophils # 9.5 H (1.3-7.7) k/uL Lymphocytes # 2.4 (1.0-4.8) k/uL Monocytes # 0.7 (0-1.0) k/uL Eosinophils # 0.2 (0-0.7) k/uL Basophils # 0.0 (0-0.2) k/uL PT (9.0-12.0) sec INR (<1.2) APTT (22.0-30.0) sec Sodium 134 L (137-145) mmol/L Potassium 4.0 (3.5-5.1) mmol/L Chloride 98 (98-107) mmol/L Carbon Dioxide 21 L (22-30) mmol/L Anion Gap 15 mmol/L BUN 28 H (7-17) mg/dL Creatinine 1.30 H (0.52-1.04) mg/dL Est GFR (CKD-EPI)AfAm 51 (>60 ml/min/1.73 sqM) Est GFR (CKD-EPI)NonAf 44 (>60 ml/min/1.73 sqM) Glucose 79 (74-99) mg/dL Lactic Ac Sepsis Rflx Plasma Lactic Acid Magan 2.5 H* (0.7-2.0) mmol/L Calcium 10.0 (8.4-10.2) mg/dL Magnesium 1.6 (1.6-2.3) mg/dL Total Bilirubin 0.6 (0.2-1.3) mg/dL AST 27 (14-36) U/L ALT 21 (4-34) U/L Alkaline Phosphatase 108 (38-126) U/L Troponin I (0.000-0.034) ng/mL Total Protein 8.4 H (6.3-8.2) g/dL Albumin 4.6 (3.5-5.0) g/dL Lipase 435 H (23-300) U/L TSH (0.465-4.680) mIU/L Coronavirus (PCR) (Not Detectd) 05/10/23 05/10/23 05/10/23 Range/Units 20:32 20:34 20:34 WBC (3.8-10.6) k/uL RBC (3.80-5.40) m/uL Hgb (11.4-16.0) gm/dL Hct (34.0-46.0) % MCV (80.0-100.0) fL MCH (25.0-35.0) pg MCHC (31.0-37.0) g/dL RDW (11.5-15.5) % Plt Count (150-450) k/uL MPV Neutrophils % % Lymphocytes % % Monocytes % % Eosinophils % % Basophils % % Neutrophils # (1.3-7.7) k/uL Lymphocytes # (1.0-4.8) k/uL Monocytes # (0-1.0) k/uL Eosinophils # (0-0.7) k/uL Basophils # (0-0.2) k/uL PT 10.1 (9.0-12.0) sec INR 0.9 (<1.2) APTT 24.2 (22.0-30.0) sec Sodium (137-145) mmol/L Potassium (3.5-5.1) mmol/L Chloride (98-107) mmol/L Carbon Dioxide (22-30) mmol/L Anion Gap mmol/L BUN (7-17) mg/dL Creatinine (0.52-1.04) mg/dL Est GFR (CKD-EPI)AfAm (>60 ml/min/1.73 sqM) Est GFR (CKD-EPI)NonAf (>60 ml/min/1.73 sqM) Glucose (74-99) mg/dL Lactic Ac Sepsis Rflx Plasma Lactic Acid Magan (0.7-2.0) mmol/L Calcium (8.4-10.2) mg/dL Magnesium (1.6-2.3) mg/dL Total Bilirubin (0.2-1.3) mg/dL AST (14-36) U/L ALT (4-34) U/L Alkaline Phosphatase (38-126) U/L Troponin I <0.012 (0.000-0.034) ng/mL Total Protein (6.3-8.2) g/dL Albumin (3.5-5.0) g/dL Lipase (23-300) U/L TSH (0.465-4.680) mIU/L Coronavirus (PCR) Not Detected (Not Detectd) 05/10/23 05/10/23 Range/Units 20:34 21:01 WBC (3.8-10.6) k/uL RBC (3.80-5.40) m/uL Hgb (11.4-16.0) gm/dL Hct (34.0-46.0) % MCV (80.0-100.0) fL MCH (25.0-35.0) pg MCHC (31.0-37.0) g/dL RDW (11.5-15.5) % Plt Count (150-450) k/uL MPV Neutrophils % % Lymphocytes % % Monocytes % % Eosinophils % % Basophils % % Neutrophils # (1.3-7.7) k/uL Lymphocytes # (1.0-4.8) k/uL Monocytes # (0-1.0) k/uL Eosinophils # (0-0.7) k/uL Basophils # (0-0.2) k/uL PT (9.0-12.0) sec INR (<1.2) APTT (22.0-30.0) sec Sodium (137-145) mmol/L Potassium (3.5-5.1) mmol/L Chloride (98-107) mmol/L Carbon Dioxide (22-30) mmol/L Anion Gap mmol/L BUN (7-17) mg/dL Creatinine (0.52-1.04) mg/dL Est GFR (CKD-EPI)AfAm (>60 ml/min/1.73 sqM) Est GFR (CKD-EPI)NonAf (>60 ml/min/1.73 sqM) Glucose (74-99) mg/dL Lactic Ac Sepsis Rflx Y Plasma Lactic Acid Magan (0.7-2.0) mmol/L Calcium (8.4-10.2) mg/dL Magnesium (1.6-2.3) mg/dL Total Bilirubin (0.2-1.3) mg/dL AST (14-36) U/L ALT (4-34) U/L Alkaline Phosphatase (38-126) U/L Troponin I (0.000-0.034) ng/mL Total Protein (6.3-8.2) g/dL Albumin (3.5-5.0) g/dL Lipase (23-300) U/L TSH <0.015 L (0.465-4.680) mIU/L Coronavirus (PCR) (Not Detectd) Disposition Clinical Impression: Dehydration, YOUSUF (acute kidney injury), Acute pancreatitis Disposition: ADMITTED IP TO THIS HOSP Condition: Fair
[2023-05-10] MEDS ORDERED: NALOXONE 0.4 MG/ML 1 ML VIAL IV PRN (22:03)
[2023-05-10] MEDS ORDERED: MAG HYDROX/AL HYDROX/SIMETH 30 ML, HYOSCYAMINE ELIXIR 10 ML, LIDOCAINE 2% GLYDO JELLY 1... PO STA ×3 (22:10)
[2023-05-10] MEDS ORDERED: ACETAMINOPHEN TAB 500 MG TAB PO STA (22:10)
[2023-05-10] MEDS: SODIUM CHLORIDE 0.9% 1,000 ML IV SCH (22:44)
[2023-05-10 23:28] LABS: Appearance,Urine Cloudy (Clear); Bilirubin,Urine Negative (Negative); Blood,Urine Negative (Negative); Color,Urine Light Yellow; Glucose,Urine (UA) Negative (Negative); Ketones,Urine Negative (Negative); Leukocyte Esterase,Urine Large (Negative); Nitrite,Urine Negative (Negative); Protein,Urine Negative (Negative); Specific Gravity,Urine 1.008 (1.001-1.035); Urobilinogen,Urine <2.0 mg/dL (<2.0)
[2023-05-10] MEDS ORDERED: ACETAMINOPHEN TAB 500 MG TAB PO PRN (23:37)
[2023-05-10] MEDS ORDERED: ACETAMINOPHEN TAB 325 MG TAB PO PRN (23:39)
[2023-05-10 23:40] LABS: Squamous Epithelial Cell,Urine 4 /hpf (0-4); WBC,Urine 50 /hpf (0-5)
[2023-05-10 23:41] LABS: Bacteria,Urine Few /hpf
[2023-05-11 00:05] LABS: T4, Free (Free Thyroxine) 2.98 ng/dL (0.78-2.19)
[2023-05-11] MEDS ORDERED: DEXTROSE 50% SYRINGE 50 ML IVP PRN ×2 (09:39)
[2023-05-11] MEDS ORDERED: LEVOTHYROXINE 100 MCG TAB PO SCH (09:45)
[2023-05-11] MEDS: SODIUM CHLORIDE 0.9% 1,000 ML IV SCH ×2 (10:15→15:29)
[2023-05-11] MEDS: MULTIVITAMINS, THERA 1 EACH TAB PO SCH (10:15)
[2023-05-11] MEDS: CITALOPRAM HYDROBROMIDE 10 MG TAB PO SCH (10:15)
[2023-05-11 11:49] LABS: Glucose,Whole Blood 106 mg/dL (70-110)
[2023-05-11 13:05] LABS: African American GFR (CKD) 52 (>60 ml/min/1.73 sqM); Anion Gap 9 mmol/L; Blood Urea Nitrogen 23 mg/dL (7-17); Calcium 8.5 mg/dL (8.4-10.2); Carbon Dioxide 24 mmol/L (22-30); Chloride 106 mmol/L (98-107); Glucose 88 mg/dL (74-99); Magnesium 1.6 mg/dL (1.6-2.3); Non-African American GFR(CKD) 45 (>60 ml/min/1.73 sqM); Potassium 3.8 mmol/L (3.5-5.1); Sodium 139 mmol/L (137-145)
[2023-05-11 13:21] LABS: Basophils % (A) 0 %; Eosinophils # (A) 0.2 k/uL (0-0.7); Eosinophils % (A) 2 %; HCT 34.6 % (34.0-46.0); HGB 12.8 gm/dL (11.4-16.0); Lymphocytes # (A) 2.3 k/uL (1.0-4.8); Lymphocytes % (A) 28 %; MCH 33.1 pg (25.0-35.0); MCHC 37.1 g/dL (31.0-37.0); MCV 89.2 fL (80.0-100.0); Mean Platelet Volume 11.3; Monocytes # (A) 0.9 k/uL (0-1.0); Monocytes % (A) 11 %; Neutrophils # (A) 4.7 k/uL (1.3-7.7); Neutrophils % (A) 57 %; Platelet Count 160 k/uL (150-450); RBC 3.88 m/uL (3.80-5.40); RDW 13.9 % (11.5-15.5); WBC 8.2 k/uL (3.8-10.6)
[2023-05-11] MEDS: INSULIN ASPART (NovoLOG) 100 UNIT/ML VIAL SQ SCH ×3 (13:38→21:39)
--- NOTE | 2023-05-11 15:52 | P.HPIM ---
History of Present Illness H&P Date: 05/11/23 This is a 63-year-old female who presented to the emergency department with generalized weakness feeling dehydrated with decreased oral intake and appetite. Patient had recent ostomy placed out of [place] as patient was found to have a fistula noted of the colon and vagina and is post ostomy. Patient reports she has not been able to handle the amount of intake required and had had decreased output noted in her ileostomy. Patient with some molecular abnormalities including acute kidney injury likely secondary poor oral intake and as well as medication effect from metformin and hydrochlorothiazide. Recommend holding those medications as patient is normotensive as well as holding metformin until follow-up outpatient. Patient received IV fluids and awaiting follow-up labs. Patient reports she follows with Dr. 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 Patient reports she used to smoke and denies any other alcohol or illicit drug use. Patient had chest x-ray on admission showing no acute cardiopulmonary process an EKG showed sinus tachycardia patient was admitted under observation for dehydration and generalized weakness. Review Of Systems: Constitutional: No fever, no chills, no night sweats. No weight change. Reports increased weakness, fatigue and lethargy. No daytime sleepiness. EENT: No headache. No blurred vision or double vision, no loss of vision. No loss of Hearing, no ringing in the ears, no dizziness. No nasal drainage or congestion. No epistaxis. No sore throat. Lungs: No shortness of breath, cough, no sputum production. No wheezing. Cardiovascular: No chest pain, no lower extremity edema. No palpitations. No paroxysmal nocturnal dyspnea. No orthopnea. No lightheadedness or dizziness. No syncopal episodes. Abdominal: No abdominal pain. No nausea, vomiting. No diarrhea. No constipation. No bloody or tarry stools.. Reports loss of appetite. And decreased output of the ileostomy Genitourinary: No dysuria, increased frequency, urgency. No urinary retention. Musculoskeletal: No myalgias. No muscle weakness, no gait dysfunction, no frequent falls. No back pain. No neck pain. Integumentary: No wounds, no lesions. No rash or pruritus. No unusual bruising. No change in hair or nails. Neurologic: No aphasia. No facial droop. No change in mentation. No head injury. No headache. No paralysis. No paresthesia. Psychiatric: No depression. No anxiety. No mood swings. Endocrine: No abnormal blood sugars. No weight change. No excessive sweating or thirst. No cold intolerance. PHYSICAL EXAMINATION: GENERAL: The patient is alert and oriented x4, Well developed, well nourished. HEENT: Pupils are round and equally reacting to light. EOMI. no scleral icterus. No conjunctival pallor. Normocephalic, atraumatic. No pharyngeal erythema. No thyromegaly. CARDIOVASCULAR: S1 and S2 muffled PULMONARY: diminished breath sounds bilaterally with no wheezing or rhonchi noted. ABDOMEN: soft. Nontender on exam. Right-sided ileostomy noted with output, non-distended, normoactive bowel sounds. No palpable organomegaly. MUSCULOSKELETAL: No joint swelling or deformity. EXTREMITIES: No cyanosis, clubbing, or pedal edema. NEUROLOGICAL: Gross neurological examination did not reveal any focal deficits. SKIN: No rashes. 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 Will add Questran twice a day Awaiting a.m. labs and will follow-up on kidney functions improved with electrodes per protocol Patient continues with significant weakness and encouraged to increase activity as tolerated Monitor closely overnight on IV hydration follow-up labs and probable discharge in 24 hours. Patient has been instructed to follow-up with her surgeon out of [place] who performed the ileostomy and she reports discussion is being had about reversal procedure in the next month or so Will continue on sliding scale and Accu-Cheks before meals and at bedtime and we'll continue to hold oral diabetic agents. The impression and plan of care has been dictated by Lisa Hartman, nurse practitioner as directed. Dr. Prenra MD I have performed a history and examination and MDM of this patient, discussed the same with the dictator, and agree with the dictator's assessment and plan as written ,documented as a scribe. Based on total visit time, I have performed more than 50% of the visit. Any additional findings or plans will be noted. Past Medical History Past Medical History: Thyroid Disorder Additional Past Medical History / Comment(s): arthritis, bowel fistula History of Any Multi-Drug Resistant Organisms: None Reported Past Surgical History: Section, Hysterectomy Additional Past Surgical History / Comment(s): thyroidectomy, illeostomy. Past Psychological History: No Psychological Hx Reported Smoking Status: Former smoker Past Alcohol Use History: Rare Past Drug Use History: None Reported Medications and Allergies Home Medications Medication Instructions Recorded Confirmed Type Levothyroxine Sodium [Synthroid] 200 mcg PO DAILY 12/28/16 05/10/23 History hydroCHLOROthiazide [Hydrodiuril] 25 mg PO DAILY 12/28/16 05/10/23 History Aspirin EC [Ecotrin Low Dose] 81 mg PO DAILY 05/10/23 05/10/23 History Atorvastatin [Lipitor] 20 mg PO HS 05/10/23 05/10/23 History Citalopram Hydrobromide [CeleXA] 10 mg PO DAILY 05/10/23 05/10/23 History Glimepiride [Amaryl] 1 mg PO DAILY 05/10/23 05/10/23 History Multivit-Min/Iron/Folic/Lutein 1 tab PO DAILY 05/10/23 05/10/23 History [Centrum Silver Women Tablet] Mv-Mn/C/Glutamin/Lysin/Tytn301 1 tablet PO BID 05/10/23 05/10/23 History [Airborne Gummies] metFORMIN HCL [Glucophage] 1,000 mg PO BID 05/10/23 05/10/23 History Allergies Allergy/AdvReac Type Severity Reaction Status Date / Time No Known Allergies Allergy Verified 05/10/23 22:19 Physical Exam Vitals: Vital Signs Temp Pulse Pulse Resp BP BP Pulse Ox 05/11/23 08:00 98.0 F 91 16 104/61 100 05/11/23 04:57 96 16 100/52 96 05/10/23 22:48 80 20 110/16 98 05/10/23 20:57 101 H 18 98/78 95 05/10/23 19:40 98.3 F 123 H 18 91/64 97 Intake and Output 05/10/23 05/11/23 05/11/23 22:59 06:59 14:59 Other: Weight 68.039 kg Results CBC & Chem 7: 05/11/23 12:02 05/11/23 12:02 Labs: Abnormal Lab Results - Last 24 Hours (Table) 05/10/23 05/10/23 05/10/23 Range/Units 20:05 20:05 20:05 WBC 12.9 H (3.8-10.6) k/uL Neutrophils # 9.5 H (1.3-7.7) k/uL Sodium 134 L (137-145) mmol/L Carbon Dioxide 21 L (22-30) mmol/L BUN 28 H (7-17) mg/dL Creatinine 1.30 H (0.52-1.04) mg/dL Plasma Lactic Acid Magan 2.5 H* (0.7-2.0) mmol/L Total Protein 8.4 H (6.3-8.2) g/dL Lipase 435 H (23-300) U/L TSH (0.465-4.680) mIU/L Free T4 (0.78-2.19) ng/dL Urine Appearance (Clear) Ur Leukocyte Esterase (Negative) Urine WBC (0-5) /hpf Urine Bacteria (None) /hpf 05/10/23 05/10/23 Range/Units 20:34 23:07 WBC (3.8-10.6) k/uL Neutrophils # (1.3-7.7) k/uL Sodium (137-145) mmol/L Carbon Dioxide (22-30) mmol/L BUN (7-17) mg/dL Creatinine (0.52-1.04) mg/dL Plasma Lactic Acid Magan (0.7-2.0) mmol/L Total Protein (6.3-8.2) g/dL Lipase (23-300) U/L TSH <0.015 L (0.465-4.680) mIU/L Free T4 2.98 H (0.78-2.19) ng/dL Urine Appearance Cloudy H (Clear) Ur Leukocyte Esterase Large H (Negative) Urine WBC 50 H (0-5) /hpf Urine Bacteria Few H (None) /hpf Thrombosis Risk Factor Assmnt - DVT/VTE Prophylaxis DVT/VTE Prophylaxis: Low risk, early ambulation encouraged Assessment and Plan Time with Patient: Greater than 30
[2023-05-11] MEDS: MAGNESIUM SULFATE-D5W PMX 1 GM in DEXTROSE/WATER 1 100ML.BAG IVPB SCH ×2 (16:02→18:35)
[2023-05-11 17:35] LABS: Glucose,Whole Blood 166 mg/dL (70-110)
[2023-05-11] MEDS: CHOLESTYRAMINE (WITH SUGAR) 4 GM PACKET PO SCH (17:38)
[2023-05-11] MEDS ORDERED: [UNRECOGNIZED DRUG - OTHER] PO SCH (21:00)
[2023-05-11 21:15] LABS: Glucose,Whole Blood 140 mg/dL (70-110)
[2023-05-12] MEDS: SODIUM CHLORIDE 0.9% 1,000 ML IV SCH ×2 (03:12→11:03)
[2023-05-12] MEDS ORDERED: LEVOTHYROXINE 88 MCG TAB PO SCH (06:30)
[2023-05-12 07:04] LABS: Glucose,Whole Blood 129 mg/dL (70-110)
[2023-05-12] MEDS: INSULIN ASPART (NovoLOG) 100 UNIT/ML VIAL SQ SCH ×2 (08:57→11:51)
[2023-05-12] MEDS ORDERED: ASPIRIN 81 MG PO SCH (09:00)
[2023-05-12] MEDS: CITALOPRAM HYDROBROMIDE 10 MG TAB PO SCH (09:46)
[2023-05-12] MEDS: MULTIVITAMINS, THERA 1 EACH TAB PO SCH (09:46)
[2023-05-12] MEDS: CHOLESTYRAMINE (WITH SUGAR) 4 GM PACKET PO SCH (11:14)
[2023-05-12 11:47] LABS: Glucose,Whole Blood 104 mg/dL (70-110)
[2023-05-12 14:36] LABS: BUN/Creat Ratio 16.64 Ratio (12.00-20.00); Blood Urea Nitrogen 18.3 mg/dL (9.0-27.0); Calcium 8.1 mg/dL (8.7-10.3); Chloride 111 mmol/L (96-109); Glucose 152 mg/dL (70-110); Potassium 3.3 mmol/L (3.5-5.5); Sodium 145 mmol/L (135-145)
[2023-05-12] MEDS ORDERED: POTASSIUM CHLORIDE ER 20 MEQ TAB.ER PO STA (15:08)
[2023-05-12 15:18] VITALS: BP 101/62; PULSE 83; RESP 18; TEMP 98.1
--- NOTE | 2023-05-16 06:25 | P.DS ---
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 Patient will follow-up with Dr. Treviño in the outpatient setting upon discharge. Patient is to follow-up with her surgeon out of [place] this week as scheduled. Total time taken is greater than 35 minutes. Hospital course This is a 63-year-old female who was recently admitted feelings of weakness and dehydration and electrolytes abnormalities being closely monitored. Patient recently underwent ileostomy placement for bowel fistula [place] and is scheduled to return to discuss possible reversal in the next few weeks. Patient had some decreased output in the ileostomy not been eating well patient had IV hydration and electrolyte replacement reports to feeling well and ostomy output has increased. Will give Questran twice daily and instructed patient to follow- up with surgeon this week. Currently no reports of chest pain, shortness of breath, or palpitations. Patient is afebrile. No reports of nausea or vomiting and patient is tolerating diet. Patient will be discharged home today. Physical exam: Gen: This is a 63-year-old female is awake, alert and oriented 3, well-developed, well-nourished HEENT: Head is atraumatic, normocephalic. Pupils equal, round. Sclerae is anicteric. NECK: Supple. No JVD. No lymphadenopathy. No thyromegaly. LUNGS: Clear to auscultation. No wheezes or rhonchi. No intercostal retractions. HEART: Regular rate and rhythm. No murmur. ABDOMEN: Soft. Bowel sounds are present. No masses. No tenderness. EXTREMITIES: No pedal edema. No calf tenderness. NEUROLOGICAL: Patient is awake, alert and oriented x3. Cranial nerves 2 through 12 are grossly intact. Please refer to medication reconciliation sheet for a list of medications. The impression and plan of care has been dictated by Lisa Hartman, Nurse Practitioner as directed. Dr. Prerna MD I have performed a history and examination and MDM of this patient, discussed the same with the dictator, and agree with the dictator's assessment and plan as written ,documented as a scribe. Based on total visit time, I have performed more than 50% of the visit. Patient Condition at Discharge: Fair Plan - Discharge Summary Discharge Rx Participant: No New Discharge Prescriptions: New Levothyroxine Sodium [Synthroid] 176 mcg PO DAILY@0630 30 Days #60 tab Acetaminophen Tab [Tylenol] 650 mg PO Q4H PRN tab PRN Reason: Pain Cholestyramine (with Sugar) [Questran Packet] 4 gm PO BID@1000,1800 #60 packet Continue Mv-Mn/C/Glutamin/Lysin/[id number] [Airborne Gummies] 1 tablet PO BID Aspirin EC [Ecotrin Low Dose] 81 mg PO DAILY Multivit-Min/Iron/Folic/Lutein [Centrum Silver Women Tablet] 1 tab PO DAILY Glimepiride [Amaryl] 1 mg PO DAILY Citalopram Hydrobromide [CeleXA] 10 mg PO DAILY Atorvastatin [Lipitor] 20 mg PO HS Discontinued hydroCHLOROthiazide [Hydrodiuril] 25 mg PO DAILY Levothyroxine Sodium [Synthroid] 200 mcg PO DAILY metFORMIN HCL [Glucophage] 1,000 mg PO BID Discharge Medication List Aspirin EC [Ecotrin Low Dose] 81 mg PO DAILY 05/10/23 [History] Atorvastatin [Lipitor] 20 mg PO HS 05/10/23 [History] Citalopram Hydrobromide [CeleXA] 10 mg PO DAILY 05/10/23 [History] Glimepiride [Amaryl] 1 mg PO DAILY 05/10/23 [History] Multivit-Min/Iron/Folic/Lutein [Centrum Silver Women Tablet] 1 tab PO DAILY 05/10/23 [History] Mv-Mn/C/Glutamin/Lysin/[id number] [Airborne Gummies] 1 tablet PO BID 05/10/23 [History] Acetaminophen Tab [Tylenol] 650 mg PO Q4H PRN tab 05/12/23 [Rx] Cholestyramine (with Sugar) [Questran Packet] 4 gm PO BID@1000,1800 #60 packet 05/12/23 [Rx] Levothyroxine Sodium [Synthroid] 176 mcg PO DAILY@0630 30 Days #60 tab 05/12/23 [Rx] Follow up Appointment(s)/Referral(s): Lyndsey Treviño MD [Primary Care Provider] - 05/17/23 2:00 pm Patient Instructions/Handouts: Cholestyramine (By mouth), Levothyroxine (By mouth), Dehydration (DC), Acute Kidney Injury (DC) Activity/Diet/Wound Care/Special Instructions: Activity limited until follow-up Follow-up with primary care provider on discharge Follow-up with your surgeon at scheduled appointment Continue to monitor blood sugars and keep a diary of readings for primary care follow-up Recommend holding Metformin for now Continue Questran twice daily. If stools are becoming too formed cut back to once daily or hold Discharge Disposition: HOME SELF-CARE
== END 2023-05-12 16:13 | disposition home or self-care (01) ==
LOC: EC 18:33 → INTOOBSV 22:02 → 5NMEDONC 22:02
PROVIDERS: ADMIT Hospitalist; ATTEND Hospitalist
DX: N17.9 Acute kidney failure, unspecified (principal); E86.0 Dehydration; E83.42 Hypomagnesemia; E11.9 Type 2 diabetes mellitus without complications; Z93.2 Ileostomy status; E89.0 Postprocedural hypothyroidism; K85.90 Acute pancreatitis without necrosis or infection, unspecified; R63.0 Anorexia; R63.8 Other symptoms and signs concerning food and fluid intake; M19.90 Unspecified osteoarthritis, unspecified site; Z20.822 Contact with and (suspected) exposure to COVID-19; Z79.890 Hormone replacement therapy; Z79.82 Long term (current) use of aspirin; Z79.84 Long term (current) use of oral hypoglycemic drugs; Z79.899 Other long term (current) drug therapy; Z90.710 Acquired absence of both cervix and uterus; Z98.891 History of uterine scar from previous surgery; Z87.19 Personal history of other diseases of the digestive system; Z87.891 Personal history of nicotine dependence
CPT/HCPCS: 96361 ×4; 96365; 96366; 96375; 99285; 36415; 93005; 84439; 80053; 80048 ×2; 84443; 83605; 83690; 83735 ×3; 84484; 85025 ×2; 85610; 85730; 81001; 83036; 87635; 71046; G0378 ×2; J2405; J3475; C9113

== ENCOUNTER → 2023-05-30 | Outpatient (CLI) | payer BC ==
[2023-05-30 16:57] LABS: BUN/Creat Ratio 13.27 Ratio (12.00-20.00); Blood Urea Nitrogen 14.6 mg/dL (9.0-27.0); Chloride 106 mmol/L (96-109); Glucose 98 mg/dL (70-110); Potassium 4.4 mmol/L (3.5-5.5); Sodium 144 mmol/L (135-145)
[2023-05-30 16:58] LABS: ALT 17 U/L (8-44); AST 17 U/L (13-35); Albumin 3.9 d/dL (3.8-4.9); Albumin/Globulin Ratio 1.39 Ratio (1.60-3.17); Alkaline Phosphatase 100 U/L (41-126); Calcium 8.8 mg/dL (8.7-10.3); Carbon Dioxide 25.6 mmol/L (21.6-31.8); Globulin 2.8 d/dL (1.6-3.3); Total Bilirubin <0.2 mg/dL (0.3-1.2); Total Protein 6.7 d/dL (6.2-8.2)
[2023-05-30 17:21] LABS: MCHC 31.6 d/dL (32.0-37.0); MCV 91.8 FL (80.0-97.0); Mean Platelet Volume 10.8 FL (9.5-12.2); NRBC Per 100 WBC 0 X 10*3/uL (0.00-0.01); Platelet Count 333 X 10*3/uL (140-440); RBC 4.14 X 10*6/uL (4.10-5.20); WBC 7.24 X 10*3/uL (4.50-10.00)
== END | disposition home or self-care (01) ==
LOC: LABWHC1 10:47
PROVIDERS: ATTEND Surgery
DX: Z01.812 Encounter for preprocedural laboratory examination (principal)
CPT/HCPCS: 36415; 80053; 85027; 86850; 86900; 86901

== ENCOUNTER → 2024-07-23 | Outpatient (CLI) | payer BC ==
--- NOTE | 2024-07-24 08:20 | MM ---
Reason for Exam: Screening (asymptomatic). Last screening mammogram was performed 12 month(s) ago. Patient History: Menarche at age 12. First Full-Term at age 18. Right ovary removed at age 28. Hysterectomy at age 28. Postmenopausal. Sister had breast cancer, age 62. Mother had breast cancer, age 82. Risk Values: Rhea 5 year model risk: 7.6%. NCI Lifetime model risk: 27.4%. Prior Study Comparison: 02/12/2021 Bilateral Screening Mammogram, [facility]. 06/18/2022 Bilateral MG 3D screening mammo w/cad, [facility]. 07/20/2023 Bilateral MG 3D screening mammo w/cad, [facility]. Tissue Density: The breasts are heterogeneously dense, which may obscure small masses. Findings: Analyzed By CAD. There is no suspicious group of microcalcifications or new suspicious mass in either breast. Overall Assessment: Benign, BI-RAD 2 Management: Screening Mammogram of both breasts in 1 year. . Patient should continue monthly self-breast exams. A clinical breast exam by your physician is recommended on an annual basis. This exam should not preclude additional follow-up of suspicious palpable abnormalities. Note on Rhea scores and lifetime risk: 1. A Rhea score greater than 3% is considered moderate risk. If this is the case, consider specialist referral to assess eligibility for a risk reducing agent. 2. If overall lifetime risk for the development of breast cancer is 20% or higher, the patient may qualify for future screening with alternating mammogram and breast MRI. [facility], , 07/24/2024 8:17 AM. Electronically signed and approved by: Samuel Koo M.D. Radiologis
== END | disposition home or self-care (01) ==
LOC: RADMAMWWP 13:32
PROVIDERS: ATTEND Family Medicine
CPT/HCPCS: 77063; 77067

== ENCOUNTER 2024-09-16 10:12 | Emergency (ER) | payer BC ==
[2024-09-16 10:19] VITALS: RESP 16; TEMP 97.7
--- NOTE | 2024-09-16 11:00 | ED ---
General Adult HPI - General Chief complaint: Abdominal Pain Stated complaint: Abd pain Time Seen by Provider: 09/16/24 10:21 Source: patient, RN notes reviewed Mode of arrival: ambulatory Limitations: no limitations - History of Present Illness Initial comments: Patient is a 64-year-old female present to the emergency department with concern with abdominal discomfort. Onset of symptoms was around 3 weeks ago. Symptoms were intermittent however now more persistent. Patient has had nausea with a couple episodes of vomiting. No constipation or diarrhea. Discomfort feels like cramping and is diffuse. Patient does have history of colon resection around a year ago. Patient stopped drinking coffee and started taking [id number] omeprazole with improvement of symptoms. Discomfort is currently 01/17 - Related Data Home Medications Medication Instructions Recorded Confirmed Aspirin EC [Ecotrin Low Dose] 81 mg PO DAILY 05/10/23 05/10/23 Atorvastatin [Lipitor] 20 mg PO HS 05/10/23 05/10/23 Citalopram Hydrobromide [CeleXA] 10 mg PO DAILY 05/10/23 05/10/23 Glimepiride [Amaryl] 1 mg PO DAILY 05/10/23 05/10/23 Multivit-Min/Iron/Folic/Lutein 1 tab PO DAILY 05/10/23 05/10/23 [Centrum Silver Women Tablet] Mv-Mn/C/Glutamin/Lysin/[id number] 1 tablet PO BID 05/10/23 05/10/23 [Airborne Gummies] Previous Rx's Medication Instructions Recorded Acetaminophen Tab [Tylenol] 650 mg PO Q4H PRN tab 05/12/23 Cholestyramine (with Sugar) 4 gm PO BID@1000,1800 #60 packet 05/12/23 [Questran Packet] Levothyroxine Sodium [Synthroid] 176 mcg PO DAILY@0630 30 Days #60 05/12/23 tab Dicyclomine [Bentyl] 20 mg PO QID PRN #15 tablet 09/16/24 Allergies Allergy/AdvReac Type Severity Reaction Status Date / Time No Known Allergies Allergy Verified 09/16/24 10:19 Review of Systems ROS Statement: Those systems with pertinent positive or pertinent negative responses have been documented in the HPI. ROS Other: All systems not noted in ROS Statement are negative. Constitutional: Denies: fever Eyes: Denies: eye pain ENT: Denies: ear pain Respiratory: Denies: cough, dyspnea Cardiovascular: Denies: chest pain Gastrointestinal: Reports: as per HPI, abdominal pain, nausea Genitourinary: Denies: dysuria Musculoskeletal: Denies: back pain Past Medical History Past Medical History: Thyroid Disorder Additional Past Medical History / Comment(s): arthritis, bowel fistula History of Any Multi-Drug Resistant Organisms: None Reported Past Surgical History: Section, Hysterectomy Additional Past Surgical History / Comment(s): thyroidectomy, illeostomy. Past Psychological History: No Psychological Hx Reported Smoking Status: Former smoker Past Alcohol Use History: Rare Past Drug Use History: None Reported General Exam Limitations: no limitations General appearance: alert, in no apparent distress Head exam: Present: normocephalic Eye exam: Present: normal appearance Neck exam: Present: normal inspection Respiratory exam: Present: normal lung sounds bilaterally Cardiovascular Exam: Present: regular rate, normal rhythm Expanded Peripheral pulses: 2+: Dorsalis Pedis (R), Dorsalis Pedis (L) GI/Abdominal exam: Present: soft, tenderness (Mild diffuse tenderness), normal bowel sounds. Absent: distended, guarding, rebound, rigid, pulsatile mass Extremities exam: Present: normal inspection Neurological exam: Present: alert Psychiatric exam: Present: normal affect, normal mood Skin exam: Present: normal color Course Vital Signs 09/16/24 10:16 Temperature 97.7 F Pulse Rate 78 Respiratory 16 Rate Blood Pressure 159/79 O2 Sat by Pulse 97 Oximetry Medical Decision Making - Medical Decision Making Was pt. sent in by a medical professional or institution (, PA, BOOM STICK WORKER, urgent care, hospital, or residential...) When possible be specific @ -No Did you speak to anyone other than the patient for history (EMS, parent, family, police, friend...)? What history was obtained from this source @ -No Did you review nursing and triage notes (agree or disagree)? Why? @ -I reviewed and agree with nursing and triage notes Were old charts reviewed (outside hosp., previous admission, EMS record, old EKG, old radiological studies, urgent care reports/EKG's, residential records)? Report findings @ -No old charts were reviewed Differential Diagnosis (chest pain, altered mental status, abdominal pain women, abdominal pain men, vaginal bleeding, weakness, fever, dyspnea, syncope, headache, dizziness, GI bleed, back pain, seizure, CVA, palpatations, mental health, musculoskeletal)? @ -Differential Abdominal Pain Women: Appendicitis, Cholecystitis, diverticulosis, ischemic bowel, pancreatitis, hepatitis, UTI, gastroenteritis, AAA, incarcerated hernia, bowel obstruction, constipation, inflammatory bowel, hepatitis, peptic ulcer disease, splenic infarction, perforated viscus, vulvitis, ovarian torsion, PID, kidney stone, placenta abruption, this is not meant to be an all-inclusive list EKG interpreted by me (3pts min.). @ -As above X-rays interpreted by me (1pt min.). @ -None done CT interpreted by me (1pt min.). @ -CT scan abdomen pelvis does not reveal acute abnormality U/S interpreted by me (1pt. min.). @ -None done What testing was considered but not performed or refused? (CT, X-rays, U/S, labs)? Why? @ -None What meds were considered but not given or refused? Why? @ -Considered insulin for hyperglycemia however patient refuses Did you discuss the management of the patient with other professionals (professionals i.e. , PA, BOOM STICK WORKER, lab, RT, psych nurse, social science teacher, pipe stress engineer, teacher, foreign policy officer, housing case manager)? Give summary @ -No Was smoking cessation discussed for >3mins.? @ -No Was critical care preformed (if so, how long)? @ -No Were there social determinants of health that impacted care today? How? (Homelessness, low income, unemployed, alcoholism, drug addiction, transportation, low edu. Level, literacy, decrease access to med. care, [facility], rehab)? @ -No Was there de-escalation of care discussed even if they declined (Discuss DNR or withdrawal of care, Hospice)? DNR status @ -No What co-morbidities impacted this encounter? (DM, HTN, Smoking, COPD, CAD, Cancer, CVA, ARF, Chemo, Hep., AIDS, mental health diagnosis, sleep apnea, morbid obesity)? @ -History of previous colectomy Was patient admitted / discharged? Hospital course, mention meds given and route, prescriptions, significant lab abnormalities, going to OR and other pertinent info. @ -Patient presents with abdominal discomfort. Patient states symptoms have been somewhat improving. Investigation unremarkable except for hyperglycemia. Patient offered insulin however refuses. Patient recommended close follow-up with her doctor and surgeon. Patient will be discharged Undiagnosed new problem with uncertain prognosis? @ -No Drug Therapy requiring intensive monitoring for toxicity (Heparin, Nitro, Insulin, Cardizem)? @ -No Were any procedures done? @ -No Diagnosis/symptom? @ -Abdominal pain, hyperglycemia Acute, or Chronic, or Acute on Chronic? @ -Acute, acute on chronic Uncomplicated (without systemic symptoms) or Complicated (systemic symptoms)? @ -Default Side effects of treatment? @ -No Exacerbation, Progression, or Severe Exacerbation? @ -No Poses a threat to life or bodily function? How? (Chest pain, [place], VA, pneumonia, PE, COPD, DKA, ARF, appy, cholecystitis, CVA, Diverticulitis, Homicidal, Vallada[place] icidal, threat to staff... and all critical care pts) @ -No - Lab Data Result diagrams: 09/16/24 11:08 09/16/24 11:08 Lab Results 09/16/24 09/16/24 09/16/24 Range/Units 11:08 11:08 11:08 WBC 7.5 (3.8-10.6) k/uL RBC 4.45 (3.80-5.40) m/uL Hgb 13.4 (11.4-16.0) gm/dL Hct 41.0 (34.0-46.0) % MCV 92.2 (80.0-100.0) fL MCH 30.1 (25.0-35.0) pg MCHC 32.7 (31.0-37.0) g/dL RDW 12.5 (11.5-15.5) % Plt Count 242 (150-450) k/uL MPV 8.2 Neutrophils % 65 % Lymphocytes % 28 % Monocytes % 2 % Eosinophils % 4 % Basophils % 0 % Neutrophils # 4.8 (1.3-7.7) k/uL Lymphocytes # 2.1 (1.0-4.8) k/uL Monocytes # 0.2 (0-1.0) k/uL Eosinophils # 0.3 (0-0.7) k/uL Basophils # 0.0 (0-0.2) k/uL PT 10.2 (10.0-12.5) sec INR 0.9 (<1.2) APTT 24.3 (22.0-30.0) sec Sodium 138 (137-145) mmol/L Potassium 4.1 (3.5-5.1) mmol/L Chloride 106 (98-107) mmol/L Carbon Dioxide 25 (22-30) mmol/L Anion Gap 7 mmol/L BUN 18 H (7-17) mg/dL Creatinine 0.75 (0.52-1.04) mg/dL Est GFR (CKD-EPI)AfAm >90 (>60 ml/min/1.73 sqM) Est GFR (CKD-EPI)NonAf 85 (>60 ml/min/1.73 sqM) Glucose 313 H (74-99) mg/dL Calcium 8.8 (8.4-10.2) mg/dL Total Bilirubin 0.6 (0.2-1.3) mg/dL AST 28 (14-36) U/L ALT 18 (4-34) U/L Alkaline Phosphatase 78 (38-126) U/L Total Protein 7.2 (6.3-8.2) g/dL Albumin 4.3 (3.5-5.0) g/dL Amylase 52 (30-110) U/L Lipase 142 (23-300) U/L Urine Color Urine Appearance (Clear) Urine pH (5.0-8.0) Ur Specific [place] (1.001-1.035) Urine Protein (Negative) Urine Glucose (UA) (Negative) Urine Ketones (Negative) Urine Blood (Negative) Urine Nitrite (Negative) Urine Bilirubin (Negative) Urine Urobilinogen (<2.0) mg/dL Ur Leukocyte Esterase (Negative) 09/16/24 Range/Units 11:15 WBC (3.8-10.6) k/uL RBC (3.80-5.40) m/uL Hgb (11.4-16.0) gm/dL Hct (34.0-46.0) % MCV (80.0-100.0) fL MCH (25.0-35.0) pg MCHC (31.0-37.0) g/dL RDW (11.5-15.5) % Plt Count (150-450) k/uL MPV Neutrophils % % Lymphocytes % % Monocytes % % Eosinophils % % Basophils % % Neutrophils # (1.3-7.7) k/uL Lymphocytes # (1.0-4.8) k/uL Monocytes # (0-1.0) k/uL Eosinophils # (0-0.7) k/uL Basophils # (0-0.2) k/uL PT (10.0-12.5) sec INR (<1.2) APTT (22.0-30.0) sec Sodium (137-145) mmol/L Potassium (3.5-5.1) mmol/L Chloride (98-107) mmol/L Carbon Dioxide (22-30) mmol/L Anion Gap mmol/L BUN (7-17) mg/dL Creatinine (0.52-1.04) mg/dL Est GFR (CKD-EPI)AfAm (>60 ml/min/1.73 sqM) Est GFR (CKD-EPI)NonAf (>60 ml/min/1.73 sqM) Glucose (74-99) mg/dL Calcium (8.4-10.2) mg/dL Total Bilirubin (0.2-1.3) mg/dL AST (14-36) U/L ALT (4-34) U/L Alkaline Phosphatase (38-126) U/L Total Protein (6.3-8.2) g/dL Albumin (3.5-5.0) g/dL Amylase (30-110) U/L Lipase (23-300) U/L Urine Color Colorless Urine Appearance Clear (Clear) Urine pH 5.0 (5.0-8.0) Ur Specific [place] 1.006 (1.001-1.035) Urine Protein Negative (Negative) Urine Glucose (UA) 3+ H (Negative) Urine Ketones Negative (Negative) Urine Blood Negative (Negative) Urine Nitrite Negative (Negative) Urine Bilirubin Negative (Negative) Urine Urobilinogen <2.0 (<2.0) mg/dL Ur Leukocyte Esterase Negative (Negative) Disposition Clinical Impression: Abdominal pain, Hyperglycemia Disposition: HOME SELF-CARE Condition: Stable Instructions (If sedation given, give patient instructions): Abdominal Pain (ED) Additional Instructions: Please do follow-up with your surgeon and primary care physician in the next couple of days for recheck. Return for fever, vomiting, worsening symptoms or any other concerns. Prescription sent to pharmacy. Continue omeprazole. Prescriptions: Dicyclomine [Bentyl] 20 mg PO QID PRN #15 tablet PRN Reason: Pain Is patient prescribed a controlled substance at d/c from ED?: No Referrals: Lyndsey Treviño MD [Primary Care Provider] - 1-2 days Time of Disposition: 12:48
[2024-09-16] MEDS: ONDANSETRON 4 MG/2 ML VIAL IVP STA (11:11)
[2024-09-16] MEDS: FAMOTIDINE 20 MG/2 ML VIAL IV STA (11:11)
[2024-09-16] MEDS: SODIUM CHLORIDE 0.9% 1,000 ML IV STA (11:12)
[2024-09-16 11:16] LABS: Basophils % (A) 0 %; Eosinophils # (A) 0.3 k/uL (0-0.7); Eosinophils % (A) 4 %; HGB 13.4 gm/dL (11.4-16.0); Lymphocytes # (A) 2.1 k/uL (1.0-4.8); Lymphocytes % (A) 28 %; MCH 30.1 pg (25.0-35.0); MCHC 32.7 g/dL (31.0-37.0); MCV 92.2 fL (80.0-100.0); Mean Platelet Volume 8.2; Monocytes # (A) 0.2 k/uL (0-1.0); Monocytes % (A) 2 %; Neutrophils # (A) 4.8 k/uL (1.3-7.7); Neutrophils % (A) 65 %; Platelet Count 242 k/uL (150-450); RBC 4.45 m/uL (3.80-5.40); RDW 12.5 % (11.5-15.5); WBC 7.5 k/uL (3.8-10.6)
[2024-09-16 11:29] LABS: ALT 18 U/L (4-34); African American GFR (CKD) >90 (>60 ml/min/1.73 sqM); Albumin 4.3 g/dL (3.5-5.0); Amylase 52 U/L (30-110); Anion Gap 7 mmol/L; Blood Urea Nitrogen 18 mg/dL (7-17); Calcium 8.8 mg/dL (8.4-10.2); Carbon Dioxide 25 mmol/L (22-30); Chloride 106 mmol/L (98-107); Glucose 313 mg/dL (74-99); Lipase 142 U/L (23-300); Non-African American GFR(CKD) 85 (>60 ml/min/1.73 sqM); Sodium 138 mmol/L (137-145); Total Bilirubin 0.6 mg/dL (0.2-1.3); Total Protein 7.2 g/dL (6.3-8.2)
[2024-09-16 11:30] LABS: AST 28 U/L (14-36); Alkaline Phosphatase 78 U/L (38-126); INR 0.9 (<1.2); Partial Thromboplastin Time 24.3 sec (22.0-30.0); Potassium 4.1 mmol/L (3.5-5.1); Prothrombin Time 10.2 sec (10.0-12.5)
[2024-09-16 11:32] LABS: Appearance,Urine Clear (Clear); Bilirubin,Urine Negative (Negative); Blood,Urine Negative (Negative); Color,Urine Colorless; Glucose,Urine (UA) 3+ (Negative); Ketones,Urine Negative (Negative); Leukocyte Esterase,Urine Negative (Negative); Nitrite,Urine Negative (Negative); Protein,Urine Negative (Negative); Specific Gravity,Urine 1.006 (1.001-1.035); Urobilinogen,Urine <2.0 mg/dL (<2.0)
--- NOTE | 2024-09-16 12:17 | CT ---
EXAMINATION TYPE: CT abdomen pelvis w con DATE OF EXAM: 09/16/2024 COMPARISON: 02/16/2023 CLINICAL INDICATION: Female, 64 years old with history of abdominal pain; PHH, ABDOMINAL PAIN, HX BOW EL RESECTION/FISTULA TECHNIQUE: Performed without Oral Contrast and with IV Contrast, patient injected with 100 mL of Isovue 300. CT DLP: 1011.[address] CTDI: mGy Automated exposure control for dose reduction was used. FINDINGS: The lung bases are clear. The gallbladder is contracted and the wall appears thickened which may be secondary to nondistention however there pericholecystic fluid raising the question of acute cholecystitis. There is no biliary ductal dilatation. There is no focal mass or organomegaly involving the liver, pancreas, spleen or adrenal glands. There is no solid renal mass or hydronephrosis and there is homogeneous contrast enhancement of the r enal parenchyma. The caliber the abdominal aorta is normal is no retroperitoneal adenopathy or hemorr estephanie. There are anastomotic sutures in the ascending and in the rectosigmoid junction.. There is a prominen t air-filled appendix but it is stable compared to the prior study and there is no periappendiceal in flammation or abscess. There is no free intraperitoneal air or fluid. No pelvic mass, free fluid, abscess or adenopathy. There is no fistula. The osseous structures and soft tissues are intact. IMPRESSION: 1. Findings raise the question of possibility of a calculus acute cholecystitis. 2. No additional acute changes within the abdomen or pelvis. [facility], , 09/16/2024 12:15 PM
[2024-09-16 13:00] VITALS: BP 178/82; PULSE 75
== END 2024-09-16 13:00 | disposition home or self-care (01) ==
LOC: EC 10:12
DX: R10.9 Unspecified abdominal pain (principal); R73.9 Hyperglycemia, unspecified; Z90.49 Acquired absence of other specified parts of digestive tract; Z87.891 Personal history of nicotine dependence
CPT/HCPCS: 36415; 80053; 82150; 83690; 85025; 85610; 85730; 81003; 74177; 99284; 96374; 96375; 96361; J2405; J3490; Q9967

== ENCOUNTER → 2024-09-21 | Outpatient (CLI) | payer BC ==
--- NOTE | 2024-09-21 09:20 | US ---
EXAMINATION TYPE: US gallbladder DATE OF EXAM: 09/21/2024 COMPARISON: NONE CLINICAL INDICATION: Female, 64 years old with history of R10.84 GENERALIZED ABD PAIN; abn CT, no sym ptoms TECHNIQUE: Grayscale and color Doppler imaging of the right upper quadrant was performed. FINDINGS: EXAM MEASUREMENTS: Liver Length: 18.6 cm Gallbladder Wall: 0.2 cm CBD: 0.6 cm Right Kidney: 10.7 x 4.0 x 3.6 cm Pancreas: wnl Liver: wnl Gallbladder: wnl Evidence for sonographic Khalil's sign: no CBD: wnl Right Kidney: wnl IMPRESSION: No evidence for acute process. [facility], , 09/21/2024 9:18 AM
== END | disposition home or self-care (01) ==
LOC: RADUSWWP 07:54
PROVIDERS: ATTEND Family Medicine
DX: K81.0 Acute cholecystitis (principal); R10.84 Generalized abdominal pain; R93.3 Abnormal findings on diagnostic imaging of other parts of digestive tract
CPT/HCPCS: 76705